=== PATIENT | male | born 1955 | race Caucasian/White ===

== ENCOUNTER 2024-01-26 10:15 | Inpatient (IN) | payer SELFPAY, MEDICAID ==
[~2024-01-26] VITALS: Ht 177.8 cm; Wt 95.5 kg
[2024-01-26 11:20] LABS: Basophils # (auto) 0 10 ^3/uL (0-0.2); Eosinophils # (auto) 0.3 10 ^3/uL (0-0.8); Lymphocytes # (auto) 1.1 10 ^3/uL (0.4-5.4); Monocytes # (auto) 0.6 10 ^3/uL (0-1.3); Monocytes % (auto) 7.2 % (0.0-12.0)
[2024-01-26 11:23] LABS: Basophils % (auto) 0.3 % (0.0-2.0); Eosinophils % (auto) 3.6 % (0.0-7.0); Hematocrit 55.2 % (41.0-53.0); Hemoglobin 19.6 g/dL (13.5-17.5); Lymphocytes % (auto) 12.4 % (10.0-50.0); Mean Corpuscular Hemoglobin 30.4 pg (28.0-32.0); Mean Corpuscular Hgb Conc. 35.4 g/dL (32.0-36.0); Mean Corpuscular Volume 85.9 fL (80.0-100.0); Neutrophils # (auto) 6.7 10 ^3/uL (1.6-8.6); Neutrophils % (auto) 76.5 % (37.0-80.0); Platelet Count (auto) 198 10^3/uL (140-450); Red Blood Cells 6.42 10^6/uL (4.5-5.90); White Blood Cell 8.8 10^3/uL (4.4-10.8)
[2024-01-26 11:40] LABS: Alanine Aminotransferase 90 U/L (7-40); Alkaline Phosphatase 128 U/L (46-116); Anion Gap 9 (5-15); Aspartate Aminotransferase 33 U/L (13-40); BUN/Creatinine Ratio 11.5 (10.0-20.0); Blood Urea Nitrogen 15 mg/dL (9-23); Calcium 10.7 mg/dL (8.7-10.4); Carbon Dioxide 28 mmol/L (20-31); Chloride 104 mmol/L (98-107); Glucose 227 mg/dL (74-106); Potassium 3.5 mmol/L (3.5-5.1); Sodium 141 mmol/L (136-145)
[2024-01-26 11:41] LABS: Albumin 5.1 g/dL (3.2-4.8); Bilirubin, Total 1.1 mg/dL (0.2-1.0); Total Protein 6.9 g/dL (5.7-8.2)
[2024-01-26 12:54] LABS: Large Platelets FEW; Platelet Estimate Adequa
[2024-01-26] MEDS: LABETALOL HCL 20 MG/4 ML VL IV ONE (16:22)
[2024-01-26] MEDS: ACETAMINOPHEN 500 MG TAB PO ONE (16:25)
[2024-01-26 20:00] VITALS: PULSE 94; RESP 16; O2SAT 94
[2024-01-26] MEDS ORDERED: MORPHINE SULFATE INJ 2 MG/ml SYRG IV PRN (21:00)
[2024-01-26] MEDS: ENOXAPARIN SOD 40 MG/0.4 ML SYRINGE SC ONE (21:00)
[2024-01-26] MEDS ORDERED: AMLO1TAB22 PO (21:22)
[2024-01-26] MEDS ORDERED: DEXTROSE (50%) 50ML SYRG IV PRN (21:30)
[2024-01-26] MEDS: hydroCHLOROthiazide 25 MG TAB PO ONE (21:30)
[2024-01-26] MEDS: LOSARTAN POTASSIUM 50 MG TAB PO ONE (21:30)
[2024-01-26] MEDS: ATORVASTATIN 20 MG TAB PO SCH (22:00)
[2024-01-26] MEDS: INSULIN LANTUS (GLARGINE) 1 /0.01ml (100units/ml) SC SCH (22:00)
[2024-01-26 22:09] LABS: INR 1.1 (0.9-1.15); Prothrombin Time 11.6 sec (9.3-11.8)
[2024-01-26] MEDS: ACCU-CHEK COMFORT CURVE STRIP VI SCH (23:43)
[2024-01-26] MEDS: InsuLIN REG 1unit/0.01ml Soln (100units/ml) SC SCH (23:53)
[2024-01-27] VITALS (8 sets, daily range): BP systolic 121–180; BP diastolic 66–115; PULSE 94–124; RESP 16–18; TEMP 97.7–98.6; O2SAT 92–96
[2024-01-27] MEDS: amLODIPine BESYLATE 5 MG TAB PO ONE (00:30)
[2024-01-27] MEDS: POTASSIUM EFFERVESENT TAB 25 MEQ GT ONE (02:52)
[2024-01-27 04:07] LABS: Basophils # (auto) 0 10 ^3/uL (0-0.2); Eosinophils # (auto) 0.4 10 ^3/uL (0-0.8); Monocytes # (auto) 0.8 10 ^3/uL (0-1.3); Neutrophils # (auto) 5.5 10 ^3/uL (1.6-8.6); Platelet Count (auto) 191 10^3/uL (140-450)
[2024-01-27 04:09] LABS: Anion Gap 9 (5-15); Carbon Dioxide 28 mmol/L (20-31); Chloride 102 mmol/L (98-107); Potassium 3.7 mmol/L (3.5-5.1); Sodium 139 mmol/L (136-145)
[2024-01-27 04:10] LABS: Calcium 10.1 mg/dL (8.7-10.4)
[2024-01-27 04:11] LABS: Basophils % (auto) 0.5 % (0.0-2.0); Eosinophils % (auto) 4.3 % (0.0-7.0); Hematocrit 53.5 % (41.0-53.0); Hemoglobin 19.3 g/dL (13.5-17.5); Lymphocytes # (auto) 1.5 10 ^3/uL (0.4-5.4); Lymphocytes % (auto) 18.1 % (10.0-50.0); Mean Corpuscular Volume 86.2 fL (80.0-100.0); Monocytes % (auto) 9.7 % (0.0-12.0); Neutrophils % (auto) 67.4 % (37.0-80.0); Nucleated Red Blood Cells % 0.2 %; Red Blood Cells 6.21 10^6/uL (4.5-5.90); Red Cell Distribution Width 13.1 % (11.8-14.3); White Blood Cell 8.2 10^3/uL (4.4-10.8)
[2024-01-27 04:15] LABS: BUN/Creatinine Ratio 14.4 (10.0-20.0); Blood Urea Nitrogen 14 mg/dL (9-23); Glucose 145 mg/dL (74-106)
[2024-01-27] MEDS ORDERED: DEXTROSE (50%) 50ML SYRG IV PRN (04:30)
[2024-01-27] MEDS: ACETAMINOPHEN 500 MG TAB PO PRN (05:35)
[2024-01-27] MEDS: InsuLIN REG 1unit/0.01ml Soln (100units/ml) SC SCH (06:00)
[2024-01-27] MEDS: ACCU-CHEK COMFORT CURVE STRIP VI SCH (06:00)
[2024-01-27] MEDS ORDERED: LABETALOL HCL 20 MG/4 ML VL IV PRN (06:30)
[2024-01-27] MEDS ORDERED: LEVALBUTEROL HCL 1.25 MG/3 ML NEB NEB SCH (06:45)
[2024-01-27] MEDS: PANTOPRAZOLE 40 MG TAB PO SCH (06:48)
[2024-01-27] MEDS ORDERED: SODIUM CHLORIDE 0.9% 500 ML IV ONE (08:15)
[2024-01-27] MEDS ORDERED: hydrALAZINE HCL 20 MG/ML VL IV PRN ×2 (09:00→13:45)
[2024-01-27] MEDS: hydrALAZINE HCL 20 MG/ML VL IV ONE (09:27)
[2024-01-27] MEDS ORDERED: POTASSIUM EFFERVESENT TAB 25 MEQ GT ONE (10:30)
[2024-01-27] MEDS: LOSARTAN POTASSIUM 50 MG TAB PO SCH (11:21)
[2024-01-27] MEDS: hydroCHLOROthiazide 25 MG TAB PO SCH (11:22)
[2024-01-27] MEDS: amLODIPine BESYLATE 5 MG TAB PO SCH (11:22)
[2024-01-27] MEDS: LEVALBUTEROL HCL 1.25 MG/3 ML NEB NEB SCH (11:36)
[2024-01-27] MEDS: NIFEdipine ER 30 MG TAB PO ONE (12:51)
[2024-01-27] MEDS: POTASSIUM EFFERVESENT TAB 25 MEQ PO ONE (14:04)
[2024-01-27] MEDS ORDERED: cloNIDine HCL 0.1 MG TAB PO PRN (17:00)
[2024-01-27] MEDS: cloNIDine HCL 0.1 MG TAB PO ONE (19:02)
[2024-01-27] MEDS: KETOROLAC TROMETH 30 MG/ML 1ML VIAL IV ONE (21:48)
[2024-01-27] MEDS: ENOXAPARIN SOD 40 MG/0.4 ML SYRINGE SC SCH (21:53)
[2024-01-27] MEDS ORDERED: METOPROLOL TARTRATE 25 MG TAB PO SCH (22:00)
[2024-01-28] VITALS (11 sets, daily range): BP systolic 107–138; BP diastolic 69–91; PULSE 56–119; RESP 16–20; TEMP 97.4–98.1; O2SAT 92–96
[2024-01-28 06:48] LABS: Basophils # (auto) 0 10 ^3/uL (0-0.2); Eosinophils # (auto) 0.4 10 ^3/uL (0-0.8); Mean Corpuscular Hemoglobin 30.8 pg (28.0-32.0); Monocytes # (auto) 0.9 10 ^3/uL (0-1.3); Nucleated Red Blood Cells % 0.1 %
[2024-01-28 06:57] LABS: Basophils % (auto) 0.5 % (0.0-2.0); Eosinophils % (auto) 3.6 % (0.0-7.0); Hemoglobin 20.1 g/dL (13.5-17.5); Lymphocytes # (auto) 1.7 10 ^3/uL (0.4-5.4); Lymphocytes % (auto) 16.3 % (10.0-50.0); Mean Corpuscular Hgb Conc. 35.4 g/dL (32.0-36.0); Mean Corpuscular Volume 87.2 fL (80.0-100.0); Monocytes % (auto) 8.9 % (0.0-12.0); Neutrophils # (auto) 7.2 10 ^3/uL (1.6-8.6); Neutrophils % (auto) 70.7 % (37.0-80.0); Platelet Count (auto) 216 10^3/uL (140-450); Red Blood Cells 6.54 10^6/uL (4.5-5.90); Red Cell Distribution Width 13.2 % (11.8-14.3); White Blood Cell 10.2 10^3/uL (4.4-10.8)
[2024-01-28 07:09] LABS: Chloride 101 mmol/L (98-107); Potassium 3.1 mmol/L (3.5-5.1); Sodium 139 mmol/L (136-145)
[2024-01-28 07:10] LABS: Anion Gap 12 (5-15); Carbon Dioxide 26 mmol/L (20-31)
[2024-01-28 07:11] LABS: Calcium 10.2 mg/dL (8.7-10.4)
[2024-01-28 07:15] LABS: BUN/Creatinine Ratio 14.6 (10.0-20.0); Blood Urea Nitrogen 19 mg/dL (9-23); Glucose 168 mg/dL (74-106)
[2024-01-28] MEDS: POTASSIUM EFFERVESENT TAB 25 MEQ PO ONE (09:28)
[2024-01-28] MEDS: NIFEdipine ER 30 MG TAB PO SCH (10:00)
[2024-01-28] MEDS ORDERED: LEVALBUTEROL HCL 1.25 MG/3 ML NEB NEB PRN (16:15)
[2024-01-28] MEDS: ASPirin 81 mg TAB PO ONE (17:30)
[2024-01-29] VITALS (8 sets, daily range): BP systolic 120–133; BP diastolic 78–90; PULSE 65–101; RESP 16–19; TEMP 36.4; O2SAT 89–97
[2024-01-29 06:19] LABS: Basophils # (auto) 0.1 10 ^3/uL (0-0.2); Eosinophils # (auto) 0.4 10 ^3/uL (0-0.8); Hemoglobin 18.9 g/dL (13.5-17.5); Mean Corpuscular Hemoglobin 30.5 pg (28.0-32.0); Monocytes # (auto) 0.8 10 ^3/uL (0-1.3); White Blood Cell 10.7 10^3/uL (4.4-10.8)
[2024-01-29 06:22] LABS: Basophils % (auto) 0.6 % (0.0-2.0); Eosinophils % (auto) 3.8 % (0.0-7.0); Hematocrit 53.6 % (41.0-53.0); Lymphocytes # (auto) 1.5 10 ^3/uL (0.4-5.4); Lymphocytes % (auto) 13.8 % (10.0-50.0); Mean Corpuscular Hgb Conc. 35.3 g/dL (32.0-36.0); Mean Corpuscular Volume 86.4 fL (80.0-100.0); Monocytes % (auto) 7.6 % (0.0-12.0); Neutrophils # (auto) 7.9 10 ^3/uL (1.6-8.6); Neutrophils % (auto) 74.2 % (37.0-80.0); Nucleated Red Blood Cells % 0.2 %; Platelet Count (auto) 187 10^3/uL (140-450); Red Cell Distribution Width 13.1 % (11.8-14.3)
[2024-01-29 06:26] LABS: Chloride 102 mmol/L (98-107); Sodium 139 mmol/L (136-145)
[2024-01-29 06:27] LABS: Anion Gap 8 (5-15); Carbon Dioxide 29 mmol/L (20-31)
[2024-01-29 06:28] LABS: Calcium 9.5 mg/dL (8.7-10.4)
[2024-01-29 06:33] LABS: BUN/Creatinine Ratio 23.9 (10.0-20.0); Blood Urea Nitrogen 27 mg/dL (9-23); Glucose 158 mg/dL (74-106)
[2024-01-29] MEDS: ASPirin 81 mg TAB PO SCH (09:46)
[2024-01-29] MEDS: METOPROLOL TARTRATE 25 MG TAB PO SCH (09:48)
[2024-01-29] MEDS: POTASSIUM CHL 20 Meq TABLET PO ONE (09:52)
[2024-01-29 12:01] LABS: Urine Bacteria None Seen /hpf (None Seen)
[2024-01-29 12:18] LABS: Urine Blood Negative /uL (Negative); Urine Clarity Clear (Clear); Urine Color Light-Yellow (Yellow); Urine Protein, UAD Negative (Negative); Urine Specific Gravity 1.035 (1.001-1.035); Urine Urobilinogen Normal (Negative); Urine WBC 1 /hpf (0 - 3); Urine pH 5.5 (5.0-9.0)
[2024-01-29 12:56] LABS: Amphetamine Screen, Urine Neg (NEGATIVE); Barbiturate Scree,Urine Neg (NEGATIVE); Benzodiazephine Screen, Urine Neg (NEGATIVE); Cannabinoid Screen, Urine Neg (NEGATIVE); Cocaine Screen, Urine Neg (NEGATIVE); Opiate Scree,Urine Neg (NEGATIVE); Phencyclidine Screen, Urine Neg (NEGATIVE)
[2024-01-29] MEDS ORDERED: MET25T PO (16:14)
[2024-01-29] MEDS ORDERED: ASPI-325 PO (16:14)
[2024-01-29] MEDS ORDERED: ATOR20TA50 PO (16:14)
== END 2024-01-29 16:30 | disposition home or self-care (01) | DRG 304 ==
LOC: ER 10:15 → OVERFLOW 21:22 → WEST WING 01-27 17:24 → TELE-WESTW 01-28 00:43
PROVIDERS: ADMIT Internal Medicine; ATTEND Internal Medicine
DX: I16.1 Hypertensive emergency (principal); N17.0 Acute kidney failure with tubular necrosis; E78.5 Hyperlipidemia, unspecified; G44.1 Vascular headache, not elsewhere classified; E11.9 Type 2 diabetes mellitus without complications; K21.9 Gastro-esophageal reflux disease without esophagitis; R74.01 Elevation of levels of liver transaminase levels; D75.1 Secondary polycythemia; G47.30 Sleep apnea, unspecified; J45.909 Unspecified asthma, uncomplicated; E66.9 Obesity, unspecified; Z90.49 Acquired absence of other specified parts of digestive tract; Z79.84 Long term (current) use of oral hypoglycemic drugs; Z89.512 Acquired absence of left leg below knee; Z68.29 Body mass index [BMI] 29.0-29.9, adult
CPT/HCPCS: 36415; 70450; 71045; 74176; 76705; 80048; 80053; 80307; 81001; 82306; 82607; 82962; 83036; 83735; 83880; 84132; 84443; 84484; 85025; 85045; 85610; 85730; 93005; 93306; 93886; 93975; 94640; 96372; 96374; 96375; G0378; J1815; J1885